=== PATIENT | female | born 1970 | race Two or more races ===

== ENCOUNTER → 2024-07-01 | Outpatient (CLI) | payer SELFPAY ==
--- NOTE | 2024-07-01 13:45 | XR_ITS ---
Examination: Diagnostic digital mammography, unilateral, right Computer aided detection 3-D breast Tomosynthesis, unilateral Date and time of exam: July 01, 2024 1337 hours INDICATIONS: Mammogram September 17, 2023 15 mm focal asymmetry outer right breast CC view, 3.4 cm from the nipple Technique: Nonmagnified MLO, CC views of the right breast have been obtained, reconstructed from 3-D Tomosynthesis images. R2 computer aided detection program utilized for evaluation of suspicious masses and/or abnormal calcifications. 3-D Tomosynthesis images obtained. Findings: Scattered areas of fibroglandular density. Stable focal asymmetry outer right breast CC view anterior depth Impression: BI-RADS category 2: Benign findings Return to yearly follow-up mammography
== END | disposition home or self-care (01) ==
DX: R92.321 Mammographic fibroglandular density, right breast (principal)
CPT/HCPCS: 77061; 77065; G0279